=== PATIENT | female | born 1995 ===

== ENCOUNTER 2018-05-19 16:35 | Emergency (ER) | payer OTHER ==
[~2018-05-19] VITALS: Ht 170.2 cm; Wt 70.3 kg
[2018-05-19] MEDS ORDERED: SINGULAIR 10MG10 MG PO (20:08)
[2018-05-19] MEDS ORDERED: SYMBICORT 16010.2 GM IH (20:08)
[2018-05-19] MEDS ORDERED: IPRAT-ALBUT 0.5-3 ML IH (20:08)
[2018-05-19] MEDS ORDERED: MEDROLPACK PO (20:08)
[2018-05-19] MEDS ORDERED: PROMETH-CODEIN 65 ML PO (20:08)
[2018-05-19] MEDS ORDERED: TESSALON PERLE100 M1 PO (20:08)
== END 2018-05-19 20:30 | disposition home or self-care (01) ==
LOC: ER 16:35
DX: J45.998 Other asthma (principal); J35.01 Chronic tonsillitis

== ENCOUNTER 2019-08-24 00:19 | Emergency (ER) | payer OTHER ==
[~2019-08-24] VITALS: Ht 160 cm; Wt 68.0 kg
[~2019-08-24 00:19] MED LIST: IPRAT-ALBUT 0.5-3 ML IH; MEDROLPACK PO; PROMETH-CODEIN 65 ML PO; SINGULAIR 10MG10 MG PO; SYMBICORT 16010.2 GM IH; TESSALON PERLE100 M1 PO
[2019-08-24] MEDS ORDERED: URIN D.S. TABL1 EACH PO (02:35)
[2019-08-24] MEDS ORDERED: CIPRO500 MG PO (02:35)
== END 2019-08-24 02:44 | disposition home or self-care (01) ==
LOC: ER 00:19
DX: N30.80 Other cystitis without hematuria (principal)

== ENCOUNTER 2020-01-21 18:15 | Emergency (ER) | payer OTHER ==
[~2020-01-21] VITALS: Ht 160 cm; Wt 70.3 kg
[~2020-01-21 18:15] MED LIST changes: +CIPRO500 MG PO; +URIN D.S. TABL1 EACH PO
[2020-01-21] MEDS ORDERED: NITROFURANTOIN100 MG PO (22:29)
== END 2020-01-21 22:52 | disposition home or self-care (01) ==
LOC: ER 18:15
DX: N39.0 Urinary tract infection, site not specified (principal); R30.0 Dysuria